=== PATIENT | male | born 1935 | race Caucasian/White ===

== ENCOUNTER 2020-08-06 21:33 | Inpatient (IN) | payer OTHER ==
[~2020-08-06] VITALS: Ht 172.7 cm; Wt 83.9 kg
[2020-08-06 22:34] LABS: HEMOGLOBIN 13.9 gm/dl (14.0-17.5); RED BLOOD COUNT 4.44 M/UL (4.20-5.50); WHITE BLOOD COUNT 16.5 K/UL (4.5-11.0)
[2020-08-06] MEDS ORDERED: METOPROLOL SUC200 MG PO (23:36)
[2020-08-06] MEDS ORDERED: GLUCOTROL 10 MG10 MG PO (23:36)
[2020-08-06] MEDS ORDERED: LASIX TAB 20 MG20 MG PO (23:37)
[2020-08-06] MEDS ORDERED: NORVASC10 MG PO (23:38)
[2020-08-06] MEDS ORDERED: IBUPROFEN400 MG PO (23:38)
[2020-08-06] MEDS ORDERED: ACID CONTROLLER20 MG PO (23:38)
[2020-08-06] MEDS ORDERED: LIPITOR TAB 1010 MG PO (23:39)
[2020-08-08 06:06] LABS: HEMOGLOBIN 12.3 gm/dl (14.0-17.5)
[2020-08-08 06:11] LABS: RED BLOOD COUNT 3.96 M/UL (4.20-5.50); WHITE BLOOD COUNT 9.1 K/UL (4.5-11.0)
[2020-08-09 06:32] LABS: HEMOGLOBIN 10.9 gm/dl (14.0-17.5); RED BLOOD COUNT 3.53 M/UL (4.20-5.50); WHITE BLOOD COUNT 9.4 K/UL (4.5-11.0)
[2020-08-09] MEDS ORDERED: HYDROCODON-ACE1 EAC4 PO (11:20)
[2020-08-10 06:07] LABS: HEMOGLOBIN 9.6 gm/dl (14.0-17.5); WHITE BLOOD COUNT 7.6 K/UL (4.5-11.0)
[2020-08-10 06:13] LABS: RED BLOOD COUNT 3.12 M/UL (4.20-5.50)
[2020-08-11 04:12] LABS: HEMOGLOBIN 8.2 gm/dl (14.0-17.5); WHITE BLOOD COUNT 6.5 K/UL (4.5-11.0)
[2020-08-11 04:15] LABS: RED BLOOD COUNT 2.69 M/UL (4.20-5.50)
[2020-08-12 03:33] LABS: HEMOGLOBIN 8.2 gm/dl (14.0-17.5); RED BLOOD COUNT 2.73 M/UL (4.20-5.50)
[2020-08-12 03:34] LABS: WHITE BLOOD COUNT 8.4 K/UL (4.5-11.0)
[2020-08-12] MEDS ORDERED: FERROUS GLUCON324 M1 PO (11:31)
[2020-08-12] MEDS ORDERED: ASPIRIN EC325 MG PO (14:11)
[2020-08-13 03:20] LABS: HEMOGLOBIN 9.2 gm/dl (14.0-17.5); RED BLOOD COUNT 2.98 M/UL (4.20-5.50); WHITE BLOOD COUNT 10.2 K/UL (4.5-11.0)
[2020-08-14 03:31] LABS: RED BLOOD COUNT 2.88 M/UL (4.20-5.50)
--- NOTE | 2020-08-14 06:10 | NUR ---
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 PT IS CONFUSED, ESPECIALLY AT NIGHT AND DOES NOT ALWAYS COMPLY WITH TREATMENT. WCTM
[2020-08-14] MEDS ORDERED: HYDROCODON-ACE1 EAC4 PO (13:54)
--- NOTE | 2020-08-14 15:38 | NUR ---
08/14/20 1530 REPORT CALLED TO [facility] TO RED DIETRICH RN
== END 2020-08-14 19:20 | DRG 522 ==
LOC: ER1 21:33 → M/S 23:19 → CDU 23:19 → M/S 08-07 00:27
PROVIDERS: Emergency Medicine; Internal Medicine; Orthopaedic Surgery; ADMIT Internal Medicine
PROC: 0SRS0J9 Replacement of Left Hip Joint, Femoral Surface with Synthetic Substitute, Cemented, Open Approach (ICD-10-PCS; principal; 2020-08-08 12:30)
PROC: 3E02340 Introduction of Influenza Vaccine into Muscle, Percutaneous Approach (ICD-10-PCS; 2020-08-14)
DX: S72.002A Fracture of unspecified part of neck of left femur, initial encounter for closed fracture (principal); D62 Acute posthemorrhagic anemia; N17.9 Acute kidney failure, unspecified; N18.4 Chronic kidney disease, stage 4 (severe); Z20.822 Contact with and (suspected) exposure to COVID-19; W18.30XA Fall on same level, unspecified, initial encounter; E11.22 Type 2 diabetes mellitus with diabetic chronic kidney disease; I12.9 Hypertensive chronic kidney disease with stage 1 through stage 4 chronic kidney disease, or unspecified chronic kidney disease; S00.83XA Contusion of other part of head, initial encounter; K21.9 Gastro-esophageal reflux disease without esophagitis; D64.9 Anemia, unspecified; Z89.512 Acquired absence of left leg below knee; Y92.009 Unspecified place in unspecified non-institutional (private) residence as the place of occurrence of the external cause; Z82.3 Family history of stroke; Z86.73 Personal history of transient ischemic attack (TIA), and cerebral infarction without residual deficits; Z23 Encounter for immunization
CPT/HCPCS: 36415; 51702; 70450; 70551; 71045; 72170; 73502; 73552; 80048; 80053; 82962; 83540; 83550; 85025; 85027; 85610; 85730; 86850; 86900; 86901; 87635; 90471; 90472; 90686; 90715; 93005; 96374; 96375; 97110; 97110-GP-CQ; 97163; 97165; 97530; 97530-GP-CQ; 99285; C1776; G0008; G0378; J0360; J0690; J1170; J1644; J2270; J2405; J2704; J3010; J7030; J7120; P9047; U0002